=== PATIENT | female | born 1950 | race Caucasian/White ===

== ENCOUNTER 2019-01-07 20:51 | Emergency (ER) | payer MEDICARE, OTHER ==
--- NOTE | 2019-01-07 21:25 | ED Physician Documentation ---
General Adult - HISTORIAN Historian: patient - HPI Chief Complaint: General Adult (High Blood Pressure) Additional Information: Patient is a 68 year old female who presents to the ER via [facility] with c/o HTN. She states that this summer has been very stressful and she takes xanax for anxiety and panic attacks. Her daughter in law recently had a baby 3 weeks earlier d/t pre eclampsia (everyone is fine). She states that she has had a couple of panic attacks where she feels very jittery on the inside; she will take a couple of xanax and rest. She had her blood pressure cough and took her daughter in laws blood pressure and then she took a couple of family members blood pressures. She took hers and it was high at 180/100 so she took a xanax and rested. Then she retook it an hour later and it was 200/120 and figured she should come to the ER. Blood pressure came down in the ambulance to 160/90 without treatment. She denies any chest pain or shortness of breath. She states that they put her on Lisinopril 5 mg a few years ago due to HTN but it was caused by her anxiety and the lisinopril would bottom her pressure. Onset: hours Timing: better Severity: mild Modifying Factors: Stress - ROS CONST: no problems EYES/ENT: none CVS/RESP: none. denies: chest pain, shortness of breath GI/: none MS/SKIN/LYMPH: none NEURO/PSYCH: headache, anxiety. denies: dizziness, tingling, numbness, difficulty walking, difficulty with speech - PAST HX Past History: other (chronic kidney disease, anxiety) Immunizations: UTD Allergies/Adverse Reactions: Allergies Allergy/AdvReac Type Severity Reaction Status Date / Time ampicillin Allergy Verified 01/07/19 22:01 bupropion [From Wellbutrin] Allergy Verified 01/07/19 22:01 ciprofloxacin [From Cipro] Allergy Verified 01/07/19 22:01 erythromycin base Allergy Verified 01/07/19 22:01 [From E-Mycin] minocycline Allergy Verified 01/07/19 22:01 tetracycline Allergy Verified 01/07/19 22:01 morphine AdvReac Itchy Skin Verified 01/07/19 22:01 Home Medications: Ambulatory Orders Medication Instructions Recorded Lisinopril [Zestril] 5 mg PO DAILY #30 tablet 01/07/19 - SOCIAL HX Smoking History: non-smoker Alcohol Use: none Drug Use: none - FAMILY HX Family History: No - REVIEWED ASSESSMENTS Nursing Assessment Reviewed: Yes Vitals Reviewed: Yes ED Results Lab/Radiology - Orders Orders: ED Orders Category Date Time Status Place IV Lock 1T Care 01/07/19 21:23 Active CBC/PLATELET/DIFF Routine Lab 01/07/19 21:23 Ordered CMP Routine Lab 01/07/19 21:23 Ordered CREATINE KINASE Routine Lab 01/07/19 21:23 Ordered TROPONIN I Stat Lab 01/07/19 21:23 Ordered EKG WITH COMPARISON Stat Ther 01/07/19 21:23 Ordered General Adult Physical Exam - PHYSICAL EXAM GENERAL APPEARANCE: no distress EENT: eye inspection normal, ENT inspection normal, pharynx normal, no signs of dehydration, GENO NECK: normal inspection, supple. 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
[2019-01-07] MEDS: LISINOPRIL 5 MG TABLET PO ONE (22:06)
[2019-01-07 23:48] VITALS: BP 148/74
[2019-01-08 06:39] LABS: BASOPHILS % 0.2 % (0.0-1.5); NEUTROPHILS # 3.7 # k/uL (1.4-7.7)
[2019-01-08 06:40] LABS: eGFR (Non-African) > 60
== END 2019-01-07 22:55 | disposition home or self-care (01) ==
LOC: ED 20:51
DX: I10 Essential (primary) hypertension (principal)
CPT/HCPCS: 80053; 82550; 84484; 85025; 99283; 99284